=== PATIENT | female | born 1975 | race Two or more races ===

== ENCOUNTER 2024-11-27 16:46 | Emergency (ER) | payer OTHER ==
[~2024-11-27] VITALS: Ht 154.9 cm; Wt 70.5 kg
[2024-11-27 16:49] VITALS: BP 161/97; PULSE 88; RESP 18; TEMP 98; O2SAT 99
[2024-11-27] MEDS ORDERED: VALB80CA PO (16:57)
[2024-11-27] MEDS ORDERED: TRAZ-252 PO (16:57)
[2024-11-27] MEDS ORDERED: DIPH50CA37 PO (19:32)
[2024-11-27] MEDS: LORazepam 2 MG TABLET PO ONE (19:44)
[2024-11-27] MEDS: DiphenhydrAMINE HCL 25 MG CAPSULE PO ONE (19:44)
== END 2024-11-27 19:45 | disposition home or self-care (01) ==
LOC: EMS 16:46
DX: G47.00 Insomnia, unspecified (principal); F20.9 Schizophrenia, unspecified; F31.9 Bipolar disorder, unspecified
CPT/HCPCS: 99283